=== PATIENT | male | born 1960 | race African-American/Black ===

== ENCOUNTER 2020-09-20 10:33 | Observation (INO) | payer MEDICARE ==
[~2020-09-20] VITALS: Ht 167.6 cm; Wt 137.9 kg
[~2020-09-20 10:33] MED LIST: ALLOPURINOL300 MG PO; AMLODIPINE BESY10 MG PO; CARVEDILOL12.5 MG PO; COLCRYS0.6 MG; COMBIGAN EYE DRO5 ML; FLOMAX0.4 MG PO; LASIX40 MG PO; LISINOPRIL20 MG PO; LORCET 101 TAB PO; LYRICA50 MG; METOPROLOL TART50 MG PO; ONDANSETRON HCL4 MG PO; TIMOPTIC 0.5%1 EACH OU; TRAVATAN Z5 ML; TRUSOPT10 ML OU; VENTOLIN HFA18 GM INH; VICODIN HP 10-1 EAC1 PO
[2020-09-20 11:20] LABS: BASOPHILS # (AUTO) 0.1 (0.0-0.1); BASOPHILS % 0.8 % (0.0-1.0); EOSINOPHILS # (AUTO) 0.2 (0.0-0.4); EOSINOPHILS % 2.6 % (0.0-6.0); HEMATOCRIT 42.5 % (38.2-49.6); HEMOGLOBIN 14.2 g/dL (14.0-18.0); LYMPHOCYTES # (AUTO) 1.4 (1.0-3.2); LYMPHOCYTES % 21.5 % (18.0-39.1); MEAN CORPUSCULAR HEMOGLOBIN 28.6 pg (28-32); MEAN CORPUSCULAR HGB CONC 33.4 g/dL (31-35); MEAN CORPUSCULAR VOLUME 85.7 fL (81-99); MONOCYTES # (AUTO) 0.6 (0.2-0.8); MONOCYTES % 8.6 % (4.4-11.3); NEUTROPHILS # (AUTO) 4.3 (2.1-6.9); NEUTROPHILS % 66.2 % (38.7-80.0); PLATELET COUNT 165 x10e3/uL (140-360); RED BLOOD COUNT 4.96 x10e6/uL (4.3-5.7); RED CELL DISTRIBUTION WIDTH 14.8 % (11.7-14.4)
[2020-09-20 12:44] LABS: ALBUMIN 3.6 g/dL (3.5-5.0); ANION GAP 12.4 mmol/L (8-16); CALCIUM 9.4 mg/dL (8.4-10.2); CREATININE, SERUM 1.04 mg/dL (0.72-1.25); POTASSIUM 4.4 mmol/L (3.5-5.1)
[2020-09-20 12:59] LABS: MAGNESIUM 1.8 MG/DL (1.3-2.1)
[2020-09-20 20:00] VITALS: BP 113/70
[2020-09-20] MEDS ORDERED: CELEBREX200 MG PO (20:37)
[2020-09-20] MEDS ORDERED: HYDROCODON-ACE1 EAC9 PO (20:42)
[2020-09-20 21:00] VITALS: BP 113/70
[2020-09-20] MEDS: TIMOLOL MALEATE 0.5% OPTH DRP 5 ML BTL OU SCH (21:00)
[2020-09-20] MEDS ORDERED: ALBUTEROL SULFATE HFA 8GM INHALATION AEROSOL INH PRN (21:00)
[2020-09-20] MEDS ORDERED: HYDROCODONE/APAP 10MG-325MG TAB PO PRN (21:00)
[2020-09-20] MEDS: METOPROLOL TARTRATE 50 MG TAB PO SCH (22:27)
[2020-09-21] VITALS: BP 111/76
[2020-09-21 04:00] VITALS: BP 132/71
[2020-09-21 07:31] VITALS: BP 139/85
[2020-09-21 07:45] VITALS: BP 139/85
[2020-09-21] MEDS ORDERED: ALLOPURINOL 300 MG TAB PO SCH (09:00)
[2020-09-21] MEDS ORDERED: AMLODIPINE BESYLATE 10 MG TAB PO SCH (09:00)
[2020-09-21] MEDS: DORZOLAMIDE HCL (OPTH) 10 ML BOTTLE OP SCH ×2 (09:14→17:10)
[2020-09-21] MEDS: METOPROLOL TARTRATE 50 MG TAB PO SCH ×2 (09:15→17:10)
[2020-09-21] MEDS: TIMOLOL MALEATE 0.5% OPTH DRP 5 ML BTL OU SCH (09:15)
[2020-09-21 11:34] VITALS: BP 159/80
[2020-09-21] MEDS ORDERED: ELIQUIS5 M1 PO (19:20)
[2020-09-21] MEDS ORDERED: TOPROL XL50 MG PO (19:21)
[2020-09-21 20:00] VITALS: BP 148/92
== END 2020-09-21 20:30 | disposition home or self-care (01) ==
LOC: ER 11:05 → ERHOLD 13:51 → MED/SURG 19:46
PROVIDERS: ADMIT Internal Medicine; ATTEND Internal Medicine
DX: I48.92 Unspecified atrial flutter (principal); I10 Essential (primary) hypertension; E66.01 Morbid (severe) obesity due to excess calories; Z68.42 Body mass index [BMI] 45.0-49.9, adult; J45.909 Unspecified asthma, uncomplicated
CPT/HCPCS: 36415; 71046; 80053; 83735; 84484; 85025; 93005; 93306; 99284; G0378 ×2

== ENCOUNTER → 2024-01-19 | Outpatient (REF) | payer MEDICARE ==
[~2024-01-19] MED LIST changes: +CELEBREX200 MG PO; +ELIQUIS5 M1 PO; +HYDROCODON-ACE1 EAC9 PO; +IOPAMIDOL 370 MG/ML 100 ML INFUS..BTL INJ ONE; +METOPROLOL TARTRATE 25 MG TAB ONE; +METOPROLOL TARTRATE INJ 1 MG/ML VIAL ONE; +NITROGLYCERIN 0.4 MG SUBL ONE; +SODIUM CHLORIDE 0.9% 100 ML ONE; +TOPROL XL50 MG PO
[2024-01-19 08:50] LABS: CREATININE, SERUM 1.28 mg/dL (0.72-1.25)
== END ==
LOC: CT 07:42
PROVIDERS: ATTEND Internal Medicine Cardiovascular Disease
DX: R07.9 Chest pain, unspecified (principal); R94.39 Abnormal result of other cardiovascular function study
CPT/HCPCS: 36415; 75574; 75580; 82565; 84520; J7050; Q9967

== ENCOUNTER 2024-02-04 07:59 | Day surgery (SDC) | payer MEDICARE ==
[2024-02-02 09:07] LABS: BASOPHILS % 0.5 % (0.0-1.0); EOSINOPHILS # (AUTO) 0.2 (0.0-0.4); HEMATOCRIT 38.9 % (38.2-49.6); HEMOGLOBIN 12.3 g/dL (14.0-18.0); LYMPHOCYTES # (AUTO) 1.6 (1.0-3.2); LYMPHOCYTES % 19.3 % (18.0-39.1); MEAN CORPUSCULAR HEMOGLOBIN 28.9 pg (28-32); MEAN CORPUSCULAR HGB CONC 31.6 g/dL (31-35); MEAN CORPUSCULAR VOLUME 91.5 fL (81-99); MONOCYTES # (AUTO) 0.7 (0.2-0.8); MONOCYTES % 8.5 % (4.4-11.3); NEUTROPHILS # (AUTO) 5.6 (2.1-6.9); NEUTROPHILS % 69.2 % (38.7-80.0); PLATELET COUNT 218 x10e3/uL (140-360); RED BLOOD COUNT 4.25 x10e6/uL (4.3-5.7); RED CELL DISTRIBUTION WIDTH 13.8 % (11.7-14.4); WHITE BLOOD COUNT 8.04 x10e3/uL (4.8-10.8)
[2024-02-02 09:25] LABS: INR 0.91; PROTHROMBIN TIME 12.8 seconds (11.9-14.5)
[2024-02-02 09:37] LABS: ALBUMIN 3.4 g/dL (3.5-5.0); ALBUMIN/GLOBULIN RATIO 0.9 (0.8-2.0); ANION GAP 13.5 mmol/L (8-16); BILIRUBIN,TOTAL 0.5 mg/dL (0.2-1.2); CALCIUM 9.8 mg/dL (8.4-10.2); CHOL/HDL RATIO 2.7 (3.9-4.7); CREATININE, SERUM 1.23 mg/dL (0.72-1.25); POTASSIUM 4.5 mmol/L (3.5-5.1); TOTAL PROTEIN 7.4 g/dL (6.5-8.1)
[2024-02-04] VITALS (12 sets, daily range): BP systolic 108–144; BP diastolic 68–84; PULSE 60–74; RESP 13–18; TEMP 97.5–98.8; O2SAT 98–100
[~2024-02-04] VITALS: Ht 167.6 cm; Wt 131.5 kg
[~2024-02-04 07:59] MED LIST changes: -IOPAMIDOL 370 MG/ML 100 ML INFUS..BTL INJ ONE; +LATANOPROST2.5 ML OP; -METOPROLOL TARTRATE 25 MG TAB ONE; -METOPROLOL TARTRATE INJ 1 MG/ML VIAL ONE; -NITROGLYCERIN 0.4 MG SUBL ONE; -SODIUM CHLORIDE 0.9% 100 ML ONE; +VALSARTAN-HCTZ1 EAC2 PO
[2024-02-04] MEDS ORDERED: LIDOCAINE HCL 1% LOCAL INJ 20 ML VIAL ONE (08:11)
[2024-02-04] MEDS ORDERED: HEPARIN SOD/SOD CHLORIDE 2,000 ML ONE (08:11)
[2024-02-04] MEDS ORDERED: IOPAMIDOL 370 MG/ML 100 ML INFUS..BTL INJ ONE (08:11)
[2024-02-04] MEDS ORDERED: VERAPAMIL HCL 2.5 MG/ML 2 ML VIAL ONE (08:27)
[2024-02-04] MEDS ORDERED: NITROGLYCERIN/D5W 200 MCG/ML 250 ML ONE (08:28)
[2024-02-04] MEDS ORDERED: HEPARIN SOD (PORCINE) 1000 UNIT/ML 30ML ONE (08:28)
[2024-02-04] MEDS ORDERED: MIDAZOLAM HCL 2 MG/2 ML VIAL ONE ×2 (08:54→09:20)
[2024-02-04] MEDS ORDERED: FENTANYL CITRATE/PF 100MCG/2 ML INJ ONE (08:55)
[2024-02-04] MEDS ORDERED: SODIUM CHLORIDE 0.9% 1000ML 1,000 ML ONE (08:56)
== END 2024-02-04 12:00 | disposition home or self-care (01) ==
LOC: CATH LAB 07:59
PROVIDERS: ATTEND Internal Medicine Cardiovascular Disease
DX: I25.119 Atherosclerotic heart disease of native coronary artery with unspecified angina pectoris (principal); I10 Essential (primary) hypertension; I48.92 Unspecified atrial flutter; E78.5 Hyperlipidemia, unspecified; Z01.812 Encounter for preprocedural laboratory examination; Z79.02 Long term (current) use of antithrombotics/antiplatelets; Z79.899 Other long term (current) drug therapy; Z68.42 Body mass index [BMI] 45.0-49.9, adult; Z82.49 Family history of ischemic heart disease and other diseases of the circulatory system
CPT/HCPCS: 36415; 80053; 80061; 85025; 85610; 93458; C1887; J1644; J2250; J3010; J7030; Q9967; J2003